=== PATIENT | male | born 1960 | race African-American/Black ===

== ENCOUNTER 2023-11-04 11:46 | Inpatient (IN) | payer MEDICAID ==
[~2023-11-04] VITALS: Ht 172.7 cm; Wt 75.0 kg
[~2023-11-04 11:46] MED LIST: ALEVE PO; CALCTAB80 PO; Nyquil PO; TYLENOL PM PO
[2023-11-04 11:52] VITALS: BP 147/83; PULSE 80; RESP 20; O2SAT 98
[2023-11-04 13:19] LABS: Urine Bacteria None Seen /hpf (None Seen); Urine WBC None Seen /hpf (0 - 3)
[2023-11-04 13:31] LABS: Basophils # (auto) 0 10 ^3/uL (0-0.2); Basophils % (auto) 0.4 % (0.0-2.0); Eosinophils # (auto) 0.1 10 ^3/uL (0-0.8); Hematocrit 45.6 % (41.0-53.0); Hemoglobin 15.4 g/dL (13.5-17.5); Lymphocytes % (auto) 32.6 % (10.0-50.0); Mean Corpuscular Hemoglobin 30.3 pg (28.0-32.0); Mean Corpuscular Hgb Conc. 33.7 g/dL (32.0-36.0); Mean Corpuscular Volume 89.9 fL (80.0-100.0); Monocytes # (auto) 0.5 10 ^3/uL (0-1.3); Monocytes % (auto) 8.3 % (0.0-12.0); Neutrophils # (auto) 3.6 10 ^3/uL (1.6-8.6); Neutrophils % (auto) 57.7 % (37.0-80.0); Nucleated Red Blood Cells % 0.1 %; Platelet Count (auto) 374 10^3/uL (140-450); Red Blood Cells 5.07 10^6/uL (4.5-5.90); Red Cell Distribution Width 14.4 % (11.8-14.3); White Blood Cell 6.2 10^3/uL (4.4-10.8)
[2023-11-04 13:33] LABS: Urine Blood Negative /uL (Negative); Urine Clarity Clear (Clear); Urine Color Light-Yellow (Yellow); Urine Protein, UAD Negative (Negative); Urine Urobilinogen Normal (Negative)
[2023-11-04 13:46] LABS: Alanine Aminotransferase 23 U/L (7-40); Albumin 4.7 g/dL (3.2-4.8); Alkaline Phosphatase 82 U/L (46-116); Anion Gap 5 (5-15); Aspartate Aminotransferase 12 U/L (13-40); BUN/Creatinine Ratio 7.3 (10.0-20.0); Bilirubin, Total 0.4 mg/dL (0.2-1.0); Blood Urea Nitrogen 9 mg/dL (9-23); Calcium 9.9 mg/dL (8.7-10.4); Carbon Dioxide 27 mmol/L (20-30); Chloride 104 mmol/L (98-107); Glucose 92 mg/dL (74-106); Lipase 39 U/L (12-53); Potassium 4.2 mmol/L (3.5-5.1); Sodium 136 mmol/L (136-145); Total Protein 7.2 g/dL (5.7-8.2)
[2023-11-04 14:37] LABS: INR 0.96 (0.9-1.15); Partial Thromboplastin Time 30.6 SEC (24.5-34.5); Prothrombin Time 10.2 sec (9.3-11.8)
[2023-11-04] MEDS ORDERED: DOCUSATE SOD 100 MG CAP PO PRN (15:30)
[2023-11-04] MEDS ORDERED: ONDANSETRON HCL 4 MG/2 ML VIAL IV PRN (15:30)
[2023-11-04] MEDS ORDERED: SODIUM CHLORIDE 0.9% 1,000 ML IV SCH (15:30)
[2023-11-04] MEDS ORDERED: MORPHINE SULFATE INJ 2 MG/ml SYRG IV PRN (15:30)
[2023-11-04] MEDS ORDERED: NITROGLYCERIN 0.4 MG SL TAB SL PRN (15:30)
[2023-11-04] MEDS ORDERED: PIPERACILLIN-TAZOB 3.375GM 100 ML IV ONE (15:30)
[2023-11-04] MEDS ORDERED: PANTOPRAZOLE 40 MG/10 ML VIAL INJ IV ONE (16:00)
[2023-11-04] MEDS ORDERED: levoFLOXacin 500MG 100 ML IV ONE (17:15)
[2023-11-04] MEDS ORDERED: metroNIDAZOLE 500MG/100ML 100 ML IV ONE (17:15)
[2023-11-04] MEDS ORDERED: PIPERACILLIN-TAZOB 3.375GM 100 ML IV SCH (18:00)
[2023-11-04] MEDS ORDERED: metroNIDAZOLE 500MG/100ML 100 ML IV SCH (22:00)
[2023-11-05] MEDS ORDERED: levoFLOXacin 500MG 100 ML IV SCH (10:00)
[2023-11-05] MEDS ORDERED: PANTOPRAZOLE 40 MG/10 ML VIAL INJ IV SCH (10:00)
== END 2023-11-04 17:00 | disposition left against medical advice (07) | DRG 249 ==
LOC: ER 11:46 → OVERFLOW 15:26
PROVIDERS: ADMIT Nurse Practitioner Family; ATTEND Nurse Practitioner Family
DX: K52.9 Noninfective gastroenteritis and colitis, unspecified (principal); K43.6 Other and unspecified ventral hernia with obstruction, without gangrene; K21.9 Gastro-esophageal reflux disease without esophagitis; N40.0 Benign prostatic hyperplasia without lower urinary tract symptoms; N32.89 Other specified disorders of bladder; Z88.0 Allergy status to penicillin; Z87.891 Personal history of nicotine dependence
CPT/HCPCS: 36415; 71045; 74176; 80053; 81001; 83605; 83690; 84484; 85025; 85610; 85730; 99291; G0378

== ENCOUNTER 2023-12-07 20:59 | Inpatient (IN) | payer MEDICAID ==
[~2023-12-07] VITALS: Ht 175.3 cm; Wt 81.8 kg
[2023-12-07 22:13] VITALS: PULSE 84; RESP 22; O2SAT 99
[2023-12-07] MEDS: ONDANSETRON HCL 4 MG/2 ML VIAL IV ONE ×2 (22:23→23:30)
[2023-12-07] MEDS: MORPHINE SULFATE 4 MG/ML SYR/VIAL IV ONE (22:25)
[2023-12-07 23:01] LABS: Alanine Aminotransferase 25 U/L (7-40); Alkaline Phosphatase 88 U/L (46-116); Anion Gap 8 (5-15); Aspartate Aminotransferase 15 U/L (13-40); BUN/Creatinine Ratio 7.5 (10.0-20.0); Bilirubin, Total 0.6 mg/dL (0.2-1.0); Blood Urea Nitrogen 10 mg/dL (9-23); Calcium 10.9 mg/dL (8.7-10.4); Carbon Dioxide 28 mmol/L (20-31); Chloride 104 mmol/L (98-107); Glucose 179 mg/dL (74-106); Potassium 4.3 mmol/L (3.5-5.1); Sodium 140 mmol/L (136-145); Total Protein 7.9 g/dL (5.7-8.2)
[2023-12-07 23:11] LABS: Lactic Acid w/Reflex 2.6 mmol/L (0.4-2.0)
[2023-12-07 23:12] LABS: Basophils # (auto) 0 10 ^3/uL (0-0.2); Basophils % (auto) 0.2 % (0.0-2.0); Eosinophils # (auto) 0 10 ^3/uL (0-0.8); Eosinophils % (auto) 0.2 % (0.0-7.0); Hematocrit 45.4 % (41.0-53.0); Hemoglobin 15.2 g/dL (13.5-17.5); Lymphocytes # (auto) 1.7 10 ^3/uL (0.4-5.4); Mean Corpuscular Hemoglobin 29.6 pg (28.0-32.0); Mean Corpuscular Hgb Conc. 33.5 g/dL (32.0-36.0); Mean Corpuscular Volume 88.2 fL (80.0-100.0); Monocytes # (auto) 0.9 10 ^3/uL (0-1.3); Monocytes % (auto) 5.4 % (0.0-12.0); Neutrophils # (auto) 14.6 10 ^3/uL (1.6-8.6); Neutrophils % (auto) 84.2 % (37.0-80.0); Platelet Count (auto) 370 10^3/uL (140-450); Red Blood Cells 5.15 10^6/uL (4.5-5.90); Red Cell Distribution Width 13.5 % (11.8-14.3); White Blood Cell 17.4 10^3/uL (4.4-10.8)
[2023-12-07] MEDS: fentaNYL CITRATE 100 MCG/2 ML VL IV ONE (23:30)
[2023-12-08] VITALS (7 sets, daily range): BP systolic 120–128; BP diastolic 60–74; PULSE 73–93; RESP 17–18; TEMP 97.1–97.9; O2SAT 94–97
[2023-12-08] MEDS: metroNIDAZOLE 500MG/100ML 100 ML IV ONE (00:54)
[2023-12-08] MEDS ORDERED: ONDANSETRON HCL 4 MG/2 ML VIAL IV PRN (01:30)
[2023-12-08] MEDS: SODIUM CHLORIDE 0.9% 1,000 ML IV SCH (01:45)
[2023-12-08 03:01] LABS: INR 0.97 (0.9-1.15); Partial Thromboplastin Time 26.5 SEC (24.5-34.5); Prothrombin Time 10.3 sec (9.3-11.8)
[2023-12-08] MEDS ORDERED: OMEP1CAP70 PO (03:55)
[2023-12-08] MEDS: PANTOPRAZOLE 40 MG/10 ML VIAL INJ IV SCH (09:09)
[2023-12-08] MEDS: metroNIDAZOLE 500MG/100ML 100 ML IV SCH (09:09)
[2023-12-08] MEDS: MORPHINE SULFATE INJ 2 MG/ml SYRG IV PRN (11:43)
[2023-12-08] MEDS: ceFAZolin 1GM VL ONE (12:42)
[2023-12-08] MEDS: ceFAZolin 2 GM/D5W100ml 100 ML IV ONE (12:55)
[2023-12-08] MEDS ORDERED: PROPOFOL 10 MG/ML 20 ML IV ONE (13:05)
[2023-12-08] MEDS ORDERED: KETAMINE 50mg/ML 1ml syringe ONE (13:05)
[2023-12-08] MEDS ORDERED: MIDAZOLAM HCL 2MG/2ML 2ml VIAL (1mg/ml) ONE (13:05)
[2023-12-08] MEDS ORDERED: ePHEDrine SULFATE 50 MG/ML AMP ONE (13:05)
[2023-12-08] MEDS ORDERED: LIDOCAINE 2% (LOCAL ANESTH.) PF 5ml SDV ONE (13:05)
[2023-12-08] MEDS ORDERED: HYDROmorphone HCL 2 MG/ML VL/or syr ONE (13:05)
[2023-12-08] MEDS ORDERED: GLYCOPYRROLATE 0.2 MG/ML 1ML VIAL ONE (13:05)
[2023-12-08] MEDS ORDERED: ONDANSETRON HCL 4 MG/2 ML VIAL ONE (13:05)
[2023-12-08] MEDS ORDERED: ROCURONIUM 10MG/ML 10ML VIAL IV ONE (13:05)
[2023-12-08] MEDS ORDERED: fentaNYL CITRATE 100 MCG/2 ML VL ONE (13:05)
[2023-12-08] MEDS ORDERED: SUGAMMADEX 200mg/2ml Vial (100MG/ML) IV ONE (14:20)
[2023-12-08] MEDS: BUPIVACAINE 0.5% MPF INJ 30ML SDV IJ ONE (14:34)
[2023-12-08] MEDS ORDERED: HYDROmorphone HCL 2 MG/ML VL/or syr IV PRN (15:15)
[2023-12-08] MEDS: D5W/SOD CHLO 0.9% 1,000 ML IV SCH (15:15)
[2023-12-08] MEDS: ONDANSETRON HCL 4 MG/2 ML VIAL IV ONE (15:15)
[2023-12-08] MEDS: HYDROmorphone HCL 2 MG/ML VL/or syr IV PRN (23:13)
[2023-12-09 01:00] VITALS: BP 122/69; PULSE 70; RESP 18; TEMP 98.8; O2SAT 96
[2023-12-09] MEDS ORDERED: HYDROcodone-ACET 5/325MG TAB PO PRN (02:30)
[2023-12-09] MEDS: MORPHINE SULFATE INJ 2 MG/ml SYRG IV PRN (02:37)
[2023-12-09 05:00] VITALS: BP 123/62; PULSE 70; RESP 18; TEMP 98.6; O2SAT 95
[2023-12-09 07:50] LABS: Basophils # (auto) 0 10 ^3/uL (0-0.2); Basophils % (auto) 0.1 % (0.0-2.0); Eosinophils # (auto) 0 10 ^3/uL (0-0.8); Eosinophils % (auto) 0.1 % (0.0-7.0); Hematocrit 35.1 % (41.0-53.0); Hemoglobin 12.1 g/dL (13.5-17.5); Lymphocytes # (auto) 1.5 10 ^3/uL (0.4-5.4); Lymphocytes % (auto) 14.4 % (10.0-50.0); Mean Corpuscular Hemoglobin 30.5 pg (28.0-32.0); Mean Corpuscular Hgb Conc. 34.4 g/dL (32.0-36.0); Mean Corpuscular Volume 88.4 fL (80.0-100.0); Monocytes # (auto) 0.8 10 ^3/uL (0-1.3); Monocytes % (auto) 7.5 % (0.0-12.0); Neutrophils # (auto) 8.2 10 ^3/uL (1.6-8.6); Neutrophils % (auto) 77.9 % (37.0-80.0); Platelet Count (auto) 298 10^3/uL (140-450); Red Blood Cells 3.97 10^6/uL (4.5-5.90); Red Cell Distribution Width 13.6 % (11.8-14.3); White Blood Cell 10.5 10^3/uL (4.4-10.8)
[2023-12-09 08:08] LABS: Alanine Aminotransferase 17 U/L (7-40); Albumin 3.8 g/dL (3.2-4.8); Alkaline Phosphatase 61 U/L (46-116); Anion Gap 6 (5-15); Aspartate Aminotransferase 10 U/L (13-40); Blood Urea Nitrogen 11 mg/dL (9-23); Calcium 8.8 mg/dL (8.7-10.4); Carbon Dioxide 26 mmol/L (20-31); Chloride 108 mmol/L (98-107); Glucose 114 mg/dL (74-106); Potassium 4.1 mmol/L (3.5-5.1); Sodium 140 mmol/L (136-145)
[2023-12-09 08:09] LABS: Bilirubin, Total 0.5 mg/dL (0.2-1.0); Total Protein 6.1 g/dL (5.7-8.2)
[2023-12-09 09:00] VITALS: BP 126/70; PULSE 71; RESP 18; TEMP 98.4; O2SAT 99
[2023-12-09] MEDS: ACETAMINOPHEN 325 MG TAB PO SCH (10:30)
[2023-12-09] MEDS: oxyCODONE HCL 5MG TAB PO SCH (10:31)
[2023-12-09 12:49] LABS: Chloride 108 mmol/L (98-107); Sodium 139 mmol/L (136-145)
[2023-12-09 12:50] LABS: Anion Gap 4 (5-15); Carbon Dioxide 27 mmol/L (20-31)
[2023-12-09 12:51] LABS: Calcium 8.9 mg/dL (8.7-10.4)
[2023-12-09 12:55] LABS: BUN/Creatinine Ratio 8.6 (10.0-20.0); Blood Urea Nitrogen 9 mg/dL (9-23); Glucose 103 mg/dL (74-106)
[2023-12-09 13:00] VITALS: BP 134/71; PULSE 82; RESP 18; TEMP 97.9; O2SAT 97
[2023-12-09 17:00] VITALS: BP 123/72; PULSE 69; RESP 18; TEMP 98.1; O2SAT 98
[2023-12-09 22:00] VITALS: BP 141/76; PULSE 82; RESP 19; TEMP 98.4; O2SAT 96
[2023-12-10 01:00] VITALS: BP 127/67; PULSE 67; RESP 18; TEMP 97.8; O2SAT 98
[2023-12-10 05:00] VITALS: BP 122/72; PULSE 71; RESP 18; TEMP 98.3; O2SAT 98
[2023-12-10 06:51] LABS: Basophils # (auto) 0 10 ^3/uL (0-0.2); Basophils % (auto) 0.2 % (0.0-2.0); Eosinophils # (auto) 0.1 10 ^3/uL (0-0.8); Hematocrit 36.3 % (41.0-53.0); Lymphocytes # (auto) 2.3 10 ^3/uL (0.4-5.4); Lymphocytes % (auto) 25.7 % (10.0-50.0); Mean Corpuscular Hemoglobin 29.4 pg (28.0-32.0); Mean Corpuscular Volume 89.1 fL (80.0-100.0); Monocytes # (auto) 0.7 10 ^3/uL (0-1.3); Neutrophils # (auto) 5.8 10 ^3/uL (1.6-8.6); Neutrophils % (auto) 65.1 % (37.0-80.0); Platelet Count (auto) 282 10^3/uL (140-450); Red Blood Cells 4.08 10^6/uL (4.5-5.90); Red Cell Distribution Width 13.3 % (11.8-14.3); White Blood Cell 8.9 10^3/uL (4.4-10.8)
[2023-12-10 07:05] LABS: Anion Gap 4 (5-15); Carbon Dioxide 29 mmol/L (20-31); Chloride 106 mmol/L (98-107); Sodium 139 mmol/L (136-145)
[2023-12-10 07:11] LABS: BUN/Creatinine Ratio 8.9 (10.0-20.0); Blood Urea Nitrogen 10 mg/dL (9-23); Glucose 85 mg/dL (74-106)
[2023-12-10 08:47] VITALS: BP 126/74; PULSE 52; RESP 17; TEMP 98.3; O2SAT 100
[2023-12-10] MEDS ORDERED: SENNA 8.6 MG TAB PO PRN (10:45)
[2023-12-10 13:00] VITALS: BP 116/49; PULSE 58; RESP 17; TEMP 98.1; O2SAT 98
[2023-12-10] MEDS: DOCUSATE SOD 100 MG CAP PO SCH (13:22)
[2023-12-10] MEDS: SENNA 8.6 MG TAB PO ONE (13:22)
[2023-12-10 17:00] VITALS: BP 125/66; PULSE 65; RESP 17; TEMP 98; O2SAT 95
[2023-12-10 21:00] VITALS: BP 125/67; PULSE 74; RESP 18; TEMP 98.4; O2SAT 98
[2023-12-11 01:00] VITALS: BP 132/64; PULSE 72; RESP 19; TEMP 98.2; O2SAT 96
[2023-12-11 05:00] VITALS: BP 125/83; PULSE 70; RESP 18; O2SAT 97
[2023-12-11 09:00] VITALS: BP 122/71; PULSE 65; RESP 17; TEMP 97.9; O2SAT 98
[2023-12-11] MEDS ORDERED: ACETAMINOPHEN 325 MG TAB PO PRN (09:00)
[2023-12-11] MEDS ORDERED: METR-344 PO (10:42)
[2023-12-11] MEDS ORDERED: DOCU-94 PO (10:42)
[2023-12-11] MEDS ORDERED: HYDR-4902 PO (10:42)
[2023-12-11] MEDS ORDERED: KETOROLAC TROMETH 30 MG/ML 1ML VIAL IV ONE (12:59)
[2023-12-11 13:00] VITALS: BP 128/77; PULSE 62; RESP 18; TEMP 98.1; O2SAT 96
== END 2023-12-11 13:00 | disposition home or self-care (01) | DRG 227 ==
LOC: ER 20:59 → EDBD 20:59 → OVERFLOW 12-08 01:29 → CENTRAL 12-08 01:29
PROVIDERS: ADMIT Nurse Practitioner; ATTEND Student in an Organized Health Care Education/Training Program
PROC: 0WUF0JZ Supplement Abdominal Wall with Synthetic Substitute, Open Approach (ICD-10-PCS; principal; 2023-12-08 13:23)
DX: K43.6 Other and unspecified ventral hernia with obstruction, without gangrene (principal); N17.0 Acute kidney failure with tubular necrosis; E87.20 Acidosis, unspecified; R71.0 Precipitous drop in hematocrit; D72.829 Elevated white blood cell count, unspecified; E66.9 Obesity, unspecified; K42.9 Umbilical hernia without obstruction or gangrene; K59.00 Constipation, unspecified; Z88.0 Allergy status to penicillin; Z82.49 Family history of ischemic heart disease and other diseases of the circulatory system; Z83.3 Family history of diabetes mellitus; Z68.26 Body mass index [BMI] 26.0-26.9, adult
CPT/HCPCS: 36415; 71045; 74176; 80048; 80053; 83605; 85025; 85610; 85730; 86850; 86900; 86901; 93005; 96374; 96375; 99291; G0378; J0690; J1885; J2003; J2250; J2405; J2470; J2704; J3490

== ENCOUNTER 2023-12-19 14:31 | Emergency (ER) | payer MEDICAID ==
[~2023-12-19] VITALS: Ht 175.3 cm; Wt 90.0 kg
[~2023-12-19 14:31] MED LIST changes: +DOCU-94 PO; +HYDR-4902 PO; +METR-344 PO; +OMEP1CAP70 PO
[2023-12-19] MEDS ORDERED: HYDR-4902 PO (16:19)
[2023-12-19 16:29] VITALS: BP 117/71; PULSE 70; RESP 22; TEMP 98.1; O2SAT 97
== END 2023-12-19 16:32 | disposition home or self-care (01) ==
LOC: ER 14:31
DX: Z48.00 Encounter for change or removal of nonsurgical wound dressing (principal); Z76.0 Encounter for issue of repeat prescription; Z88.0 Allergy status to penicillin

== ENCOUNTER 2024-01-04 12:04 | Emergency (ER) | payer MEDICAID ==
[~2024-01-04] VITALS: Ht 175.3 cm; Wt 80.1 kg
[2024-01-04] MEDS ORDERED: DOCU-94 PO (12:23)
--- NOTE | 2024-01-04 12:24 | ED.PDOC ---
GI ASSESSMENT HPI Comments 63 year old male presents for medication refill Seen Dr. Parker for incarcerated ventral hernia on 12/08/2023 Next apt: 2 weeks from today Denies f/c/n/v/d ab pain discharge drainage Chief Complaint: Abdominal Pain Time Seen by MD: 12:19 Primary Care Provider: ELANA Reviewed Notes: Nurses Notes, Medications, Allergies Allergies: Coded Allergies: Penicillins (Verified Allergy, Unknown, 12/07/23) Home Meds Active Scripts Hydrocodone-Acetaminophen (Hydrocodone Bitartrate/AC 5-325 mg) 1 Tab Tab, 1 TAB PO Q6H for 4 Days, #16 TAB Prov:ANSHU BONILLA RECRUITING ASSOCIATE 01/04/24 Docusate Sodium (Colace) 100 Mg Cap, 1 CAP PO DAILY for 30 Days, #30 CAP Prov:ANSHU BONILLA RECRUITING ASSOCIATE 01/04/24 Metronidazole (Flagyl) 500 Mg Tab, 1 TAB PO TID for 5 Days, #15 TAB Prov:ARIELLA GOOD RECRUITING ASSOCIATE 12/11/23 Reported Medications Omeprazole (Omeprazole Dr) 20 Mg Cap, 1 CAP PO QAM 12/08/23 [Tylenol Pm] No Conflict Check, 1 TAB PO Q HS 02/10/10 [Nyquil] No Conflict Check, 30 ML PO PRN 02/10/10 [Aleve] No Conflict Check, 2 TAB PO PRN 02/09/10 [Mylanta] (Mylanta) No Conflict Check, 30 ML PO TID 02/09/10 Information Source: Patient Past Medical History PAST MEDICAL HISTORY: Denies Surgical History: Denies all surgeries Family History Family History: Reviewed,noncontributory to illness, No family hx of Cancer, No family hx of DM, No family hx of Heart stephanie, No family hx of HTN, No family hx ofKidney stephanie, No family hx of Liver stephanie, No family hx of Lung stephanie, No family hx of Stroke Social History Smoker: Other Alcohol: Denies ETOH Use Drugs: Denies Drug Use All Other Systems: Reviewed and Negative (Per HPI) Physical Exam General Appearance: No Apparent Distress, Normal HEENT: Normal ENT Inspection, Pharynx Normal, TMs Normal Neck: Full Range of Motion, Non-Tender, Normal, Normal Inspection Respiratory: Chest Non-Tender, Lungs Clear, No Accessory Muscle Use, No Respiratory Distress, Normal Breath Sounds Cardiovascular: No Edema, No JVD, No Murmur, No Gallop, Normal Peripheral Pulses, Regular Rate/Rhythm Breast Exam: Deferred Gastrointestinal: No Organomegaly, Non Tender, No Pulsatile Mass, Normal Bowel Sounds, Soft, Other (Abdominal mesentery intact.) Genitalia: Deferred Pelvic: Deferred Rectal: Deferred Extremities: No calf tenderness, Normal capillary refill, Normal inspection, Normal range of motion, Non-tender, No pedal edema Musculoskeletal : Apperance: Normal Neurologic: Alert, meal cook II-XII nml as Tested, No Motor Deficits, Normal Affect, Normal Mood, No Sensory Deficits Cerebellar Function: Normal Reflexes: Normal Skin: Dry, Normal Color, Warm Lymphatic: No Adenopathy Was a procedure done? Was a procedure done?: No GI differential Dx Differential Diagnosis: Other X-Ray, Labs, Meds, VS Vital Signs Date Time Temp Pulse Resp B/P (MAP) Pulse Ox O2 Delivery O2 Flow Rate FiO2 01/04/24 12:29 98.8 79 18 143/86 (105) 98 98.8 01/04/24 12:15 98.8 79 18 143/86 (105) 98 X-Ray, Labs, Meds, VS Comment Patient is stable for discharge at this time. External notes reviewed. Test results and diagnostic imaging interpreted. All diagnostic findings, discharge care, education and instructions provided Follow-up with PCP in 2 to 3 days Patient verbalized understanding and agreed to treatment plan Vital signs stable, afebrile, no acute distress noted Patient ambulatory with strong steady gait Advised to return precautions for any new or worsening symptoms, return to ER i mmediately for re-evaluation Patient is aware that the purpose of this visit was for an acute medical emergency requiring emergent stabilization. Chronic conditions, including malignancies have not been ruled out. Patient is instructed to follow up with PCP as directed and discharge instructions for continued care and workup. If unable to arrange follow-up, patient is to return to the emergency department for reassessment. Patient (parent or legal guardian if applicable) was given verbal and written discharge instructions and acknowledges understanding. Time of 1ST Reevaluation: 12:00 Reevaluation 1ST: Improved Patient Education/Counseling: Diagnosis, Treatment Family Education/Counseling: Diagnosis, Treatment Departure 1 Departure Time of Disposition: 12:22 Impression: Primary Impression: Hernia, ventral Qualified Codes: K43.9 - Ventral hernia without obstruction or gangrene Ruled Out: Hernia Disposition: HOME / SELF CARE / HOMELESS Condition: Stable e-Prescriptions Hydrocodone-Acetaminophen (Hydrocodone Bitartrate/AC 5-325 mg) 1 Tab Tab 1 TAB PO Q6H for 4 Days, #16 TAB Prov: ANSHU BONILLA NP 01/04/24 Docusate Sodium (Colace) 100 Mg Cap 1 CAP PO DAILY for 30 Days, #30 CAP Prov: ANSHU BONILLA RECRUITING ASSOCIATE 01/04/24 Discharged With: Self Critical Care Note Critical Care Time?: No Stability Stability form required: No Heart Score Heart Score: Heart Score Response (Comments) Value History N/A 0 EKG N/A 0 Age N/A 0 Risk Factors N/A 0 Troponin N/A 0 Total 0 ANSHU BONILLA NP Jan 04, 2024 12:24
[2024-01-04 12:29] VITALS: BP 143/86; PULSE 79; RESP 18; TEMP 98.8; O2SAT 98
== END 2024-01-04 12:29 | disposition home or self-care (01) ==
LOC: ER 12:04
DX: K43.9 Ventral hernia without obstruction or gangrene (principal); Z88.0 Allergy status to penicillin; Z79.899 Other long term (current) drug therapy

== ENCOUNTER 2024-07-22 23:15 | Emergency (ER) | payer MEDICAID ==
[~2024-07-22] VITALS: Ht 172.7 cm; Wt 76.3 kg
[2024-07-22 23:28] VITALS: BP 118/66; PULSE 73; RESP 16; TEMP 97.9; O2SAT 97
--- NOTE | 2024-07-23 00:42 | ED.PDOC ---
Back pain HPI HPI Comments PATIENT COMES WITH C/C OF LEFT HAND PAIN. PATIENT REPORTS WAKING UP 2 NIGHTS AGO HAND PAIN, DENIES INJURYM NUMBNESS OR TINGLING. THERE IS NO VISIBLE SWELLING, DEFORMITY OR BRUISING. Chief Complaint: Upper Extremity Time Seen by MD: 23:30 Primary Care Provider: ELANA Reviewed Notes: Nurses Notes, Medications, Allergies Allergies: Coded Allergies: Penicillins (Verified Allergy, Unknown, 12/07/23) Home Meds Active Scripts Hydrocodone-Acetaminophen (Hydrocodone Bitartrate/AC 5-325 mg) 1 Tab Tab, 1 TAB PO Q6H for 4 Days, #16 TAB Prov:ANSHU BONILLA STOGY MAKER 01/04/24 Docusate Sodium (Colace) 100 Mg Cap, 1 CAP PO DAILY for 30 Days, #30 CAP Prov:ANSHU BONILLA STOGY MAKER 01/04/24 Metronidazole (Flagyl) 500 Mg Tab, 1 TAB PO TID for 5 Days, #15 TAB Prov:ARIELLA GOOD STOGY MAKER 12/11/23 Reported Medications Omeprazole (Omeprazole Dr) 20 Mg Cap, 1 CAP PO QAM 12/08/23 [Tylenol Pm] No Conflict Check, 1 TAB PO Q HS 02/10/10 [Nyquil] No Conflict Check, 30 ML PO PRN 02/10/10 [Aleve] No Conflict Check, 2 TAB PO PRN 02/09/10 [Mylanta] (Mylanta) No Conflict Check, 30 ML PO TID 02/09/10 Information Source: Patient Mode of Arrival: Ambulatory Past Medical History PAST MEDICAL HISTORY: Denies Surgical History: Denies all surgeries Family History Family History: Reviewed,noncontributory to illness, No family hx of Cancer, No family hx of DM, No family hx of Heart stephanie, No family hx of HTN, No family hx ofKidney stephanie, No family hx of Liver stephanie, No family hx of Lung stephanie, No family hx of Stroke Social History Smoker: Other Alcohol: Denies ETOH Use Drugs: Denies Drug Use Constitutional: denies: chills, diaphoresis, fatigue, fever, malaise, sweats, weakness, others EENTM: denies: blurred vision, double vision, ear bleeding, ear discharge, ear drainage, ear pain, ear ringing, eye pain, eye redness, hearing loss, mouth pain, mouth swelling, nasal discharge, nose bleeding, nose congestion, nose pain, photophobia, tearing, throat pain, throat swelling, voice changes, others Respiratory: denies: cough, hemoptysis, orthopnea, SOB at rest, shortness of breath, SOB with excertion, stridor, wheezing, others Cardiovascular: denies: chest pain, dizzy spells, diaphoresis, Dyspnea on exertion, edema, irregular heart beat, left arm pain, lightheadedness, palpitations, PND, syncope, others Gastrointestinal: denies: abdomen distended, abdominal pain, blood streaked bowels, constipated, diarrhea, dysphagia, difficulty swallowing, hematemesis, melena, nausea, poor appetite, poor fluid intake, rectal bleeding, rectal pain, vomiting, others Genitourinary: denies: burning, dysuria, flank pain, frequency, hematuria, incontinence, penile discharge, penile sore, pain, testicle pain, testicle swelling, urgency, others Neurological: denies: dizziness, fainting, headache, left sided numbness, left sided weakness, numbness, paresthesia, pre-existing deficit, right sided numbness, right sided weakness, seizure, speech problems, tingling, tremors, weakness, others Musculoskeletal: reports: others (Left hand pain); denies: back pain, gout, joint pain, joint swelling, muscle pain, muscle stiffness, neck pain Integumetry: denies: bruises, change in color, change in hair/nails, dryness, laceration, lesions, lumps, rash, wounds, others Allergic/Immunocompromised: denies: Difficulty Healing, Frequent Infections, Hives, Itching, others Hematologic/Lymphatic: denies: anemia, blood clots, easy bleeding, easy br uising, swollen glands, others Endocrine: denies: excessive hunger, excessive sweating, excessive thirst, excessive urination, flushing, intolerance to cold, intolerance to heat, unexplained weight gain, unexplained weight loss, others Psychiatric: denies: anxiety, bipolar disorder, depression, hopeless, panic disorder, schizophrenia, sleepless, suicidal, others Physical Exam General Appearance: No Apparent Distress, Normal HEENT: Pharynx Normal Neck: Full Range of Motion, Non-Tender Respiratory: Lungs Clear, No Respiratory Distress, Normal Breath Sounds Cardiovascular: No Murmur, Normal Peripheral Pulses, Regular Rate/Rhythm Breast Exam: Deferred Gastrointestinal: Non Tender, Soft Genitalia: Deferred Pelvic: Deferred Rectal: Deferred Extremities: Normal capillary refill, Normal inspection, Normal range of motion, Non-tender, No pedal edema Musculoskeletal : Location: Left Extremity Location: Hand (Tenderness dorsum aspect of right hand no noted edema abrasions lesions or lacerations strength sensory motion in tact) Apperance: Normal Neurologic: Alert, bus matron II-XII nml as Tested, No Motor Deficits, Normal Affect, Normal Mood, No Sensory Deficits Cerebellar Function: Normal Reflexes: Normal Skin: Dry, Normal Color, Warm Lymphatic: No Adenopathy Was a procedure done? Was a procedure done?: No Back Pain Differential Dx Differential Diagnosis: Fracture, Musculoskeletal Pain X-Ray, Labs, Meds, VS Vital Signs Date Time Temp Pulse Resp B/P (MAP) Pulse Ox O2 Delivery O2 Flow Rate FiO2 07/22/24 23:28 97.9 73 16 118/66 (83) 97 97.9 Current Medications Medications (Trade) Dose Ordered Sig/Noe Route Start Time Stop Time Status Last Admin Oxycodone/ Acetaminophen (Percocet 5/ 325MG Tablet) 1 tab ONCE ONCE PO 07/23/24 00:30 07/23/24 00:31 DC 07/23/24 00:48 X-Ray, Labs, Meds, VS Comment X-ray left hand shows no acute fractures, subluxations, dislocations or osseous lesions. Script short term NSAID trial advised to take medication as prescribed side effects discussed. Advised to follow up with his PCP 2-3 days as necessary consider further imaging such as MRI if symptoms persist. ER return precautions given patient indicates understanding agrees with discharge plan of care. Time of 1ST Reevaluation: 00:52 Reevaluation 1ST: Unchanged Patient Education/Counseling: Diagnosis, Treatment, Prognosis, Need For Follow Up Family Education/Counseling: Diagnosis, Treatment, Prognosis, Need For Follow Up Departure 1 Departure Time of Disposition: 00:57 Impression: Primary Impression: Hand pain, right Disposition: 01 HOME / SELF CARE / HOMELESS Condition: Stable e-Prescriptions Diclofenac Potassium (Diclofenac Potassium) 50 Mg Tab 1 TAB PO BID PRN for 7 Days, #14 TAB Prov: CRISTHIAN SULLIVAN 07/23/24 Discharged With: Spouse Critical Care Note Critical Care Time?: No Stability Stability form required: No CRISTHIAN SULLIVAN Jul 23, 2024 00:42
[2024-07-23] MEDS: OXYCODONE W/ ACETAMINOPHEN 5/325MG TABLET PO ONE (00:48)
--- NOTE | 2024-07-23 00:52 | DVH ---
CLINICAL INDICATION: PAIN TECHNIQUE: XY L HAND 3V XRAY Comparison: None FINDINGS: No osseous or joint abnormality identified with no fracture or dislocation. Joint spaces are normal. IMPRESSION: No abnormality demonstrated.
[2024-07-23] MEDS ORDERED: DICL50TA2 PO (00:58)
== END 2024-07-23 01:07 | disposition home or self-care (01) ==
LOC: EEVIPCON 23:15 → ER 23:15
DX: M79.642 Pain in left hand (principal); F17.200 Nicotine dependence, unspecified, uncomplicated; Z88.0 Allergy status to penicillin; Z79.899 Other long term (current) drug therapy
CPT/HCPCS: 73130